=== PATIENT | female | born 1960 | race Caucasian/White ===

== ENCOUNTER 2020-12-11 15:22 | Emergency (ER) | payer MEDICARE, OTHER ==
[2020-12-11 16:39] LABS: BASOPHIL 0.7 % (0-2); HCT 39.7 % (37.0-47.0); LYMPHOCYTE 15.5 % (15-48); MCH 30.2 pg (25.0-31.0); MCHC 32.7 g/dL (32.0-36.0); MCV 92.1 fL (78.0-100.0); MONOCYTE 8.8 % (0-12); MPV 10.6 fL (6.0-9.5); NEUTROPHIL 69.6 % (41-80); NRBC 0; PLT 211 K/uL (150-400); RBC 4.31 M/uL (4.20-5.40); RDW 13.4 % (11.5-14.0); WBC 10.2 K/uL (4.0-10.5)
[2020-12-11 16:47] LABS: INR 1.15 (0.9-1.2); PROTHROMBIN TIME 14.1 SECONDS (11.8-13.4); PTT 27.1 SECONDS (24.4-34.7)
[2020-12-11 16:57] LABS: LACTIC ACID 1.2 mmol/L (0.4-1.9)
[2020-12-11 17:08] LABS: ALBUMIN 3.2 g/dL (3.4-5.0); BILIRUBIN - TOTAL 0.5 mg/dL (0.2-1.0); CREATININE 1.9 mg/dL (0.51-0.95); GLOBULIN (CALCULATION) 3.6 g/dL; POTASSIUM 4.5 mmol/L (3.5-5.1); TOTAL PROTEIN 6.8 g/dL (6.4-8.2)
[2020-12-11 18:15] LABS: CLARITY CLOUDY (CLEAR); COLOR AMBER (YELLOW)
[2020-12-11 18:16] LABS: BILIRUBIN 2+ mg/dL (NEGATIVE); BLOOD NEGATIVE Ery/uL (NEGATIVE); GLUCOSE (U) NORMAL (NORMAL); LEUKOCYTES TRACE Leu/uL (NEGATIVE); NITRITE NEGATIVE (NEGATIVE); PROTEIN TRACE (LOW) mg/dL (NEGATIVE); pH 5.5 (5.0-9.0)
[2020-12-11 18:22] LABS: BACTERIA TRACE
[2020-12-11 18:24] LABS: CALCIUM OXALATE CRYSTALS TRACE; TRANSITIONAL EPITHELIAL CELLS RARE
[2020-12-11 18:25] LABS: ECSTASY (MDMA) NEGATIVE (NEGATIVE); MARIJUANA (THC) NEGATIVE (NEGATIVE); METHADONE NEGATIVE (NEGATIVE); OPIATES POSITIVE (NEGATIVE)
[2020-12-11 18:26] LABS: AMPHETAMINES NEGATIVE (NEGATIVE); BARBITURATES NEGATIVE (NEGATIVE); OXYCODONE NEGATIVE (NEGATIVE)
== END 2020-12-11 19:55 | disposition home or self-care (01) ==
LOC: FER 15:22
PROVIDERS: Emergency Medicine
DX: R41.82 Altered mental status, unspecified (principal); R94.31 Abnormal electrocardiogram [ECG] [EKG]; J44.9 Chronic obstructive pulmonary disease, unspecified; F31.9 Bipolar disorder, unspecified; F41.9 Anxiety disorder, unspecified; Z79.899 Other long term (current) drug therapy
CPT/HCPCS: 36415; 70450; 71250; 80053; 80305; 81001; 82140; 83605; 85025; 85610; 85730; 86593; 87040; 87088; 93005; G0480; J7030